=== PATIENT | female | born 1980 | race Caucasian/White ===

== ENCOUNTER 2016-09-29 03:52 | Observation (INO) | payer OTHER ==
[2016-09-29] VITALS (10 sets, daily range): BP systolic 98–116; BP diastolic 47–70; PULSE 48–85; TEMP 97.3–98.7
== END 2016-09-29 20:30 | disposition home or self-care (01) ==
LOC: SURG 03:52
DX: N20.1 Calculus of ureter (principal); Z86.14 Personal history of Methicillin resistant Staphylococcus aureus infection
CPT/HCPCS: C1769; C2617; G0378; J0690; J1100; J1885; J2270; J2405; J2704; J2765; J3010; J7030; Q9967